=== PATIENT | female | born 1940 | race Caucasian/White ===

== ENCOUNTER → 2022-05-20 | Outpatient (CLI) | payer MEDICARE | LOC: HEART 5 08:41 | DX: I11.0 Hypertensive heart disease with heart failure (principal); I50.9 Heart failure, unspecified; R94.39 Abnormal result of other cardiovascular function study; R07.9 Chest pain, unspecified; R00.2 Palpitations; E11.9 Type 2 diabetes mellitus without complications; I08.1 Rheumatic disorders of both mitral and tricuspid valves | CPT/HCPCS: 93306 ==

== ENCOUNTER → 2022-06-02 | Outpatient (CLI) | payer MEDICARE ==
[~2022-06-02] VITALS: Ht 172.7 cm; Wt 64.4 kg
[~2022-06-02] MED LIST: CLOPIDOGREL75 MG PO; COZAAR 25MG TAB25 MG PO; DEXILANT60 MG PO; LASIX20 MG PO; VITAMIN D21250 MCG PO
== END ==
LOC: CATH 07:10
DX: I25.118 Atherosclerotic heart disease of native coronary artery with other forms of angina pectoris (principal); I10 Essential (primary) hypertension; E78.00 Pure hypercholesterolemia, unspecified; E11.9 Type 2 diabetes mellitus without complications; K21.9 Gastro-esophageal reflux disease without esophagitis; Z79.899 Other long term (current) drug therapy; Z88.1 Allergy status to other antibiotic agents; Z88.8 Allergy status to other drugs, medicaments and biological substances
CPT/HCPCS: 82962; 99152; C1769; C1887; C1894; J1644; J2250; J3010; J7040; Q9965; Q9967